=== PATIENT | male | born 1960 | race Caucasian/White ===

== ENCOUNTER 2024-09-27 15:56 | Outpatient (CLI) | payer MEDICAID, SELFPAY ==
[2024-09-27 16:39] LABS: Glucose Urine UA Negative (Normal); Nitrate Urine Negative (Negative); Specific Gravity, Urine 1.011 (1.005-1.030)
[2024-09-27 17:32] LABS: UA Slide Review UA Slide Review Perf
[2024-09-27 17:33] LABS: Add Urine Microscopic? YES
== END 2024-09-27 15:57 | disposition home or self-care (01) ==
LOC: LAB 16:05
PROVIDERS: Visit Provider Registered Nurse
DX: R82.998 Other abnormal findings in urine (principal)
CPT/HCPCS: 81001; 87077; 87086; 87186

== ENCOUNTER 2024-10-08 16:09 | Outpatient (CLI) | payer MEDICARE, MEDICAID, SELFPAY ==
[2024-10-08 16:26] LABS: Glucose Urine UA Negative (Normal); Nitrate Urine Negative (Negative); Specific Gravity, Urine 1.013 (1.005-1.030)
[2024-10-08 16:28] LABS: Add Urine Microscopic? YES
== END 2024-10-08 16:10 | disposition home or self-care (01) ==
PROVIDERS: Visit Provider Registered Nurse
DX: N40.0 Benign prostatic hyperplasia without lower urinary tract symptoms (principal)
CPT/HCPCS: 81001

== ENCOUNTER 2024-12-04 15:57 | Outpatient (CLI) | payer MEDICARE, MEDICAID, SELFPAY ==
[2024-12-04 16:39] LABS: Glucose Urine UA Negative (Normal); Nitrate Urine Positive (Negative); Specific Gravity, Urine 1.012 (1.005-1.030)
[2024-12-04 16:42] LABS: Add Urine Microscopic? YES
[2024-12-04 18:02] LABS: UA Slide Review UA Slide Review Perf
== END 2024-12-04 15:58 | disposition home or self-care (01) ==
PROVIDERS: Visit Provider Registered Nurse
DX: R82.0 Chyluria (principal)
CPT/HCPCS: 81001; 87086